=== PATIENT | female | born 1975 ===

== ENCOUNTER 2019-10-20 07:02 | Outpatient (REF) | payer OTHER, SELFPAY ==
[2019-10-20 09:42] LABS: Estmated Average Glucose 117; Hemoglobin A1C 5.7 % (4.0-6.0)
[2019-10-20 11:22] LABS: Chol HDL Ratio 4.19 mg/dL (0.0-4.40); Cholesterol 180 mg/dL (0-200); Glucose 99 mg/dL (65-115); HDL Cholesterol 43 mg/dL (60-100); LDL Cholesterol Calculated 111 mg/dL (50-129); LDL HDL Ratio 2.58 RATIO (0.00-3.22); Thyroid Stimulating Hormone 3.99 uIU/mL (0.27-4.20); Triglycerides 132 mg/dL (0-150)
[2019-10-20 23:29] LABS: 25 Hydroxy Vitamin D 19 ng/mL (30-100)
== END 2019-10-20 07:03 | disposition home or self-care (01) ==
LOC: LAB 07:02
PROVIDERS: Family Provider Electrodiagnostic Medicine; Visit Provider Dermatology
DX: Z01.89 Encounter for other specified special examinations (principal)
CPT/HCPCS: 80061; 82306; 82947; 83036; 84443